=== PATIENT | female | born 1945 | race Caucasian/White ===

== ENCOUNTER 2020-04-25 05:50 | Inpatient (IN) ==
[~2020-04-25 05:50] MED LIST: VANCOMYCIN 1,000 MG VIAL ONE; ceFAZolin 1,000 MG VIAL ONE
[2020-04-25] MEDS ORDERED: VANCOMYCIN INJ 1,000 MG in SODIUM CHLORIDE 0.9% 250 ML IV ONE (06:00)
[2020-04-25] MEDS ORDERED: ceFAZolin 2,000 MG in PREMIX 1 EACH IV ONE (06:00)
[2020-04-25] MEDS ORDERED: LACTATED RINGERS 1,000 ML IV SCH (06:00)
[2020-04-25] MEDS ORDERED: BACITRACIN OINT 0.9 GM PACK TOP ONE (06:29)
[2020-04-25] MEDS ORDERED: TRANEXAMIC ACID 1,000 MG/10 ML VIAL ONE (06:29)
[2020-04-25] MEDS ORDERED: DIAZEPAM 5 MG TABLET PO ONE (06:37)
[2020-04-25] MEDS ORDERED: GABAPENTIN 400 MG CAPSULE PO ONE (06:37)
[2020-04-25] MEDS ORDERED: FAMOTIDINE 20 MG TABLET PO ONE (06:37)
[2020-04-25] MEDS ORDERED: ACETAMINOPHEN 500 MG TABLET PO ONE (06:37)
[2020-04-25] MEDS ORDERED: DIAZEPAM 5 MG TABLET ONE (07:19)
[2020-04-25] MEDS ORDERED: FAMOTIDINE 20 MG TABLET ONE (07:20)
[2020-04-25] MEDS ORDERED: GABAPENTIN 300 MG CAPSULE ONE (07:20)
[2020-04-25] MEDS ORDERED: ACETAMINOPHEN 500 MG TABLET ONE (07:20)
[2020-04-25] MEDS ORDERED: DEXAMETHASONE 4 MG/1 ML VIAL ONE (07:27)
[2020-04-25] MEDS ORDERED: ROPIVACAINE 0.5% 30 ML VIAL ONE (07:27)
[2020-04-25] MEDS ORDERED: EPINEPHrine 1 MG/ML VIAL ONE (07:27)
[2020-04-25] MEDS ORDERED: ceFAZolin 1,000 MG VIAL ONE ×2 (09:20→12:56)
[2020-04-25] MEDS ORDERED: DEXTROSE 50% 25 GM/50 ML VIAL IV PRN (09:56)
[2020-04-25] MEDS ORDERED: GLUCAGON 1 MG VIAL IM PRN (09:56)
[2020-04-25] MEDS ORDERED: diphenhydrAMINE CAP 25 MG CAPSULE PO PRN (09:57)
[2020-04-25] MEDS ORDERED: ONDANSETRON 4 MG/2 ML VIAL IV PRN ×2 (09:57→10:09)
[2020-04-25] MEDS ORDERED: MORPHINE 4 MG/1 ML VIAL IV PRN ×2 (09:57)
[2020-04-25] MEDS ORDERED: ZALEPLON 5 MG CAPSULE PO PRN (09:57)
[2020-04-25] MEDS ORDERED: MAGNESIUM HYDROXIDE SUSP 30 ML UDCUP PO PRN (09:57)
[2020-04-25] MEDS ORDERED: LIDOCAINE 2% 5 ML VIAL ONE (10:00)
[2020-04-25] MEDS ORDERED: fentaNYL 100 MCG/2 ML VIAL ONE (10:01)
[2020-04-25] MEDS ORDERED: BUPIVACAINE SPINAL 0.75% 2 ML AMP SPINAL ONE (10:01)
[2020-04-25] MEDS ORDERED: SODIUM CHLORIDE 0.9% 2,000 ML IV ONE (10:01)
[2020-04-25] MEDS ORDERED: PHENYLEPHRINE 1 MG/10 ML SYRINGE IV ONE (10:01)
[2020-04-25] MEDS ORDERED: MIDAZOLAM 2 MG/2 ML VIAL ONE (10:01)
[2020-04-25] MEDS ORDERED: SODIUM CHLORIDE 0.9% 100 ML IV ONE (10:01)
[2020-04-25] MEDS ORDERED: SODIUM CHLORIDE 0.9% 250 ML IV ONE (10:02)
[2020-04-25] MEDS ORDERED: diphenhydrAMINE 50 MG/1 ML VIAL IV PRN (10:09)
[2020-04-25] MEDS ORDERED: HYDROmorphone 2 MG/1 ML VIAL IV PRN (10:09)
[2020-04-25] MEDS ORDERED: PROMETHAZINE INJ 25 MG in SODIUM CHLORIDE 0.9% 50 ML IV PRN (10:09)
[2020-04-25] MEDS: LACTATED RINGERS 1,000 ML IV SCH (10:12)
[2020-04-25] MEDS ORDERED: KETOROLAC 15 MG/1 ML VIAL ONE (10:13)
[2020-04-25] MEDS: KETOROLAC 30 MG/1 ML VIAL IV SCH ×3 (10:16→21:58)
[2020-04-25] MEDS: INSULIN LISPRO 100 UNIT/ML SUBCUT SCH ×3 (11:05→21:54)
[2020-04-25] MEDS ORDERED: ONDANSETRON 4 MG/2 ML VIAL ONE (12:56)
[2020-04-25] MEDS ORDERED: MEPERIDINE 25 MG/1 ML VIAL ONE ×2 (12:56→13:20)
[2020-04-25] MEDS: MEPERIDINE 25 MG/1 ML VIAL IV PRN ×2 (12:58→13:22)
[2020-04-25] MEDS ORDERED: PROMETHAZINE 25 MG/1 ML VIAL ONE (13:21)
[2020-04-25] MEDS: ceFAZolin 2,000 MG in PREMIX 1 EACH IV SCH ×2 (13:28→21:56)
[2020-04-25] MEDS ORDERED: DEXTROSE 10% 250 ML BAG IV PRN (14:46)
[2020-04-25] MEDS ORDERED: atenoloL 25 MG TABLET PO SCH (21:00)
[2020-04-25] MEDS ORDERED: INSULIN GLARGINE 100 UNIT/ML SUBCUT SCH (21:00)
[2020-04-25] MEDS: DOCUSATE SODIUM 100 MG CAPSULE PO SCH (21:54)
[2020-04-25] MEDS: MAGNESIUM CHLORIDE 64 MG TABLET PO SCH (21:55)
[2020-04-26] MEDS: LACTATED RINGERS 1,000 ML IV SCH ×2 (00:31→07:35)
[2020-04-26] MEDS: KETOROLAC 30 MG/1 ML VIAL IV SCH (05:15)
[2020-04-26] MEDS: LEVOTHYROXINE 137 MCG TABLET PO SCH ×2 (05:16→05:47)
[2020-04-26] MEDS ORDERED: FONDAPARINUX 2.5 MG/0.5 ML SYRINGE SUBCUT SCH (06:00)
[2020-04-26 06:11] LABS: Basophils % 0.4 % (0.0-0.8); Eosinophils # 0.1 10*3/uL (0.0-0.87); Eosinophils % 0.9 % (0.00-10.9); Hematocrit 31.1 VOL% (35.7-47.0); Immature Granulocytes % 0.4 %; Immature Granulocytes Absolute 0.04 #; Lymphocytes # 2.1 10*3/uL (1.4-4.0); Lymphocytes % 21.1 % (21.3-54.2); Mean Corpuscular HGB Conc 32.2 GM/DL (32-36); Mean Corpuscular Volume 101.3 FL (87-102); Mean Platelet Volume 10.9 FL (9.6-12.0); Monocytes % 9.6 % (1.7-12.7); Neutrophils % 67.6 % (38.7-73.9); Platelet Count 269 T/CUMM (130-400); Red Blood Count 3.07 MC/CUMM (3.8-5.5); Red Cell Distribution Width 12.4 % (9.3-17.3); White Blood Count 9.9 T/CUMM (4-12)
[2020-04-26 06:30] LABS: Calcium 7.8 MG/DL (8.5-10.1); Osmolality,Calculated 281.1 MOS/KG (273-304)
[2020-04-26] MEDS: INSULIN LISPRO 100 UNIT/ML SUBCUT SCH ×2 (07:34→12:02)
[2020-04-26] MEDS ORDERED: CALCIUM (CARBONATE)/VITAMIN D 500 MG-200 UNIT TABLET PO SCH (08:00)
[2020-04-26] MEDS: DOCUSATE SODIUM 100 MG CAPSULE PO SCH (08:45)
[2020-04-26] MEDS: MAGNESIUM CHLORIDE 64 MG TABLET PO SCH (08:50)
[2020-04-26] MEDS ORDERED: SIMVASTATIN 40 MG TABLET PO SCH (09:00)
[2020-04-26] MEDS ORDERED: SERTRALINE 50 MG TABLET PO SCH (09:00)
[2020-04-26] MEDS ORDERED: calcitrioL 0.25 MCG CAPSULE PO SCH (09:00)
[2020-04-26] MEDS ORDERED: MULTIVITAMIN (CENTRUM) TABLET PO SCH (09:00)
[2020-04-26 11:28] VITALS: BP 115/60
== END 2020-04-26 17:11 | disposition home health service (06) | DRG 470 ==
LOC: N.OR 05:50 → N.SDSINP 05:51 → N.3E 15:50
PROVIDERS: ADMIT Orthopaedic Surgery; ATTEND Orthopaedic Surgery